=== PATIENT | male | born 1950 | race Caucasian/White ===

== ENCOUNTER 2016-10-06 17:53 | Emergency (ER) | payer OTHER, MEDICAID ==
[2016-10-06 17:59] VITALS: BP 121/92; PULSE 101; RESP 18; TEMP 97.7; O2SAT 93
--- NOTE | 2016-10-06 18:19 | EDPHY ---
H & P Stated Complaint: r hip pain/clicking/feels it is r/t overuse Time Seen by Provider: 10/06/16 18:12 HPI/ROS: CHIEF COMPLAINT: Right hip pain HISTORY OF PRESENT ILLNESS: The patient is a 65-year-old obese man who comes to the emergency department complaining of right hip pain. He states that he thinks he pulled it 1 year ago and it has hurt ever since. He was doing rehab and seem to improve but over the last 3 months has began hurting again. It does not radiate down his leg or to his back. He denies any type of back pain. No weakness or deficits. No incontinence. No falls or trauma. No fevers or infections. No swelling. He is able to ambulate. He reports that he has arthritis in both knees and they have been painful but stable for some time. REVIEW OF SYSTEMS: Constitutional: denies: chills, fever, recent illness, recent injury EENTM: denies: blurred vision, double vision, nose congestion Respiratory: denies: cough, shortness of breath Cardiac: denies: chest pain, irregular heart rate, lightheadedness, palpitations Gastrointestinal/Abdominal: denies: abdominal pain, diarrhea, nausea, vomiting, blood streaked stools Genitourinary: denies: dysuria, frequency, hematuria, pain Musculoskeletal: See HPI Skin: denies: lesions, rash, jaundice, bruising Neurological: denies: headache, numbness, paresthesia, tingling, dizziness, weakness Hematologic/Lymphatic: denies: blood clots, easy bleeding, easy bruising Immunologic/allergic: denies: HIV/AIDS, transplant EXAM: GENERAL: Well-appearing, well-nourished and in no acute distress. HEAD: Atraumatic, normocephalic. EYES: Pupils equal round and reactive to light, extraocular movements intact, sclera anicteric, conjunctiva are normal. ENT: TMs normal, nares patent, oropharynx clear without exudates. Moist mucous membranes. NECK: Normal range of motion, supple without lymphadenopathy or JVD. LUNGS: Breath sounds clear to auscultation bilaterally and equal. No wheezes rales or rhonchi. HEART: Regular rate and rhythm without murmurs, rubs or gallops. ABDOMEN: Soft, nontender, normoactive bowel sounds. No guarding, no rebound. No masses appreciated. BACK: No CVA tenderness, no spinal tenderness, step-offs or deformities EXTREMITIES: Pain in right hip, no pain with range of motion. No tenderness to palpation. No swelling. Ambulatory without difficulty. Normal range of motion, no pitting or edema. No clubbing or cyanosis. NEUROLOGICAL: Cranial nerves II through XII grossly intact. Normal speech, normal gait. 5/5 strength, normal movement in all extremities, normal sensation PSYCH: Normal mood, normal affect. SKIN: Warm, dry, normal turgor, no visible rashes or lesions. Source: Patient Exam Limitations: No limitations - Personal History Current Tetanus/Diphtheria Vaccine: Yes Tetanus Vaccine Date: > 10 years - Medical/Surgical History Hx Asthma: No Hx Chronic Respiratory Disease: No Hx Diabetes: No Hx Cardiac Disease: No Hx Renal Disease: No Hx Cirrhosis: No Hx Alcoholism: No Hx HIV/AIDS: No Hx Splenectomy or Spleen Trauma: No Other PMH: HTN, arthritis. - Family History Significant Family History: No pertinent family hx - Social History Smoking Status: Never smoked Alcohol Use: Sober Drug Use: None Constitutional: Initial Vital Signs Temperature (C) 36.5 C 10/06/16 17:56 Heart Rate 101 H 10/06/16 17:56 Respiratory Rate 18 10/06/16 17:56 Blood Pressure 121/92 H 10/06/16 17:56 O2 Sat (%) 93 10/06/16 17:56 O2 Delivery Mode Room Air Allergies/Adverse Reactions: No Known Allergies Allergy (Verified 10/06/16 17:55) Home Medications: Medication Instructions Recorded Glucosamine Sulfate [Glucosamine 500 mg PO DAILY 11/25/14 Sulfate 500 MG (*)] Hydrochlorothiazide [HCTZ (*)] 25 mg PO DAILY 11/25/14 Lisinopril [Zestril 40 mg (*)] 40 mg PO DAILY 11/25/14 Meloxicam 15 mg PO DAILY 11/25/14 amLODIPine BESYLATE [Norvasc 10 mg 10 mg PO DAILY #30 tab 11/27/14 (*)] Famotidine [Pepcid 20 MG (*)] 20 mg PO DAILY PRN 04/20/15 Fluticasone Nasal [Flonase Nasal 1 sprays [place] DAILY 04/20/15 [place]] Herbals/Supplements -Info Only 1 ea PO DAILY 04/20/15 Multivitamins [Tab-A-Elio] 1 each PO DAILY 04/20/15 [place]-3 Fatty Acids [Fish Oil 1000 1,000 mg PO DAILY 04/20/15 mg (*)] Cyclobenzaprine [Flexeril] 10 mg PO TID #15 tab 09/10/15 Medical Decision Making - Diagnostics Imaging Results: Imaging Impressions Hip X-Ray 10/06/16 18:17 Impression: Severe degenerative osteoarthritic changes of the right hip are noted. Imaging: Discussed imaging studies w/ call worker Radiologist ED Course/Re-evaluation: The patient has significant degeneration arthritis of the right hip. He is feeling somewhat better after ibuprofen. He is able to ambulate. I suggested that he will need a hip replacement. He understands and agrees with this plan. He states that he is open to having it now. We discussed that this is not the best plan but that he will follow up with Orthopedics outpatient. Differential Diagnosis: Partial list of the Differential diagnosis considered include but were not limited to; arthritis, bursitis, and although unlikely based on the history and physical exam, I also considered fracture, sprain, dislocation, septic joint , radiculopathy. I discussed these differential diagnoses and the plan with the patient as well as the usual and expected course. The patient understands that the diagnosis is provisional and that in medicine we are not always correct and that further workup is often warranted. Usual and customary warnings were given. All of the patient's questions were answered. The patient was instructed to return to the emergency department should the symptoms at all worsen or return, otherwise to followup with the physician as we discussed. Departure - Departure Disposition: Home, Routine, Self-Care Clinical Impression: Arthritis, Hip pain, right Condition: Fair Instructions: Hip Pain (ED) Referrals: NONE *PRIMARY CARE P,. [Primary Care Provider] - As per Instructions Santy Pablo MD [Medical Doctor] - As per Instructions
== END 2016-10-06 19:23 | disposition home or self-care (01) ==
DX: M25.551 Pain in right hip (principal); M19.90 Unspecified osteoarthritis, unspecified site; I10 Essential (primary) hypertension

== ENCOUNTER 2018-08-21 12:56 | Inpatient (IN) | payer OTHER, MEDICAID | END 2018-08-22 16:56 | disposition home or self-care (01) | LOC: F3E 17:40 ==